=== PATIENT | male | born 1945 ===

== ENCOUNTER 2017-11-17 06:37 | Inpatient (IN) | payer OTHER ==
[~2017-11-17] VITALS: Ht 167.6 cm; Wt 104.3 kg
[~2017-11-17 06:37] MED LIST: ZANTAC150 MG
[2017-11-17] MEDS ORDERED: ENALAPRIL MALEA10 MG PO (07:01)
[2017-11-17] MEDS ORDERED: COUMADIN6 MG PO (07:02)
[2017-11-17] MEDS ORDERED: TOPROL XL25 M1 PO (07:02)
[2017-11-17] MEDS ORDERED: TAMS0.4C PO (07:03)
[2017-12-02] MEDS ORDERED: COUMADIN5 MG PO (09:55)
== END 2017-12-02 16:50 | DRG 444 ==
LOC: ER 06:37 → EDBD 07:11 → MEDJ 18:58 → MEDI 18:58 → EDSEX 18:58 → MEDJ 19:30 → SEC-K 20:19 → MEDI 23:28
PROC: 3E0F7GC Introduction of Other Therapeutic Substance into Respiratory Tract, Via Natural or Artificial Opening (ICD-10-PCS; principal; 2017-11-17)
PROC: 4A033R1 Measurement of Arterial Saturation, Peripheral, Percutaneous Approach (ICD-10-PCS; 2017-11-17)
PROC: BW25YZZ Computerized Tomography (CT Scan) of Chest, Abdomen and Pelvis using Other Contrast (ICD-10-PCS; 2017-11-17)
PROC: BW40ZZZ Ultrasonography of Abdomen (ICD-10-PCS; 2017-11-17)
PROC: BW28ZZZ Computerized Tomography (CT Scan) of Head (ICD-10-PCS; 2017-11-17)
PROC: B246ZZZ Ultrasonography of Right and Left Heart (ICD-10-PCS; 2017-11-17)
PROC: BF37ZZZ Magnetic Resonance Imaging (MRI) of Pancreas (ICD-10-PCS; 2017-11-18)
PROC: 4A12X4Z Monitoring of Cardiac Electrical Activity, External Approach (ICD-10-PCS; 2017-11-18)
PROC: 02HV33Z Insertion of Infusion Device into Superior Vena Cava, Percutaneous Approach (ICD-10-PCS; 2017-11-23)
PROC: BW20ZZZ Computerized Tomography (CT Scan) of Abdomen (ICD-10-PCS; 2017-11-23)
PROC: CF1C1ZZ Planar Nuclear Medicine Imaging of Hepatobiliary System, All using Technetium 99m (Tc-99m) (ICD-10-PCS; 2017-11-24)
DX: K81.0 Acute cholecystitis (principal); A41.1 Sepsis due to other specified staphylococcus; I50.33 Acute on chronic diastolic (congestive) heart failure; J98.11 Atelectasis; I11.0 Hypertensive heart disease with heart failure; I27.29 Other secondary pulmonary hypertension; I34.0 Nonrheumatic mitral (valve) insufficiency; D69.59 Other secondary thrombocytopenia; I25.10 Atherosclerotic heart disease of native coronary artery without angina pectoris; N40.0 Benign prostatic hyperplasia without lower urinary tract symptoms; Z98.61 Coronary angioplasty status; Z95.1 Presence of aortocoronary bypass graft; Z79.01 Long term (current) use of anticoagulants; I48.0 Paroxysmal atrial fibrillation; Z86.73 Personal history of transient ischemic attack (TIA), and cerebral infarction without residual deficits; E66.01 Morbid (severe) obesity due to excess calories